=== PATIENT | male | born 1940 | race Caucasian/White ===

== ENCOUNTER 2021-02-26 14:30 | Emergency (ER) | payer MEDICARE ==
[2021-02-26] MEDS ORDERED: Adenosine 6 MG/2 ML SDV IVPUSH ONE (15:16)
[2021-02-26] MEDS ORDERED: Propofol 200 MG/20 ML SDV IVPUSH ONE (15:41)
--- NOTE | 2021-02-26 15:53 | EDM.PDOC ---
ED HPI GENERAL MEDICAL PROBLEM - General Chief Complaint: Cardiovascular Problem Stated Complaint: HEART RATE/BLOOD PRESSURE Time Seen by Provider: 02/26/21 15:30 Source of Information: Reports: Patient, Family, Provider History Limitations: Reports: No Limitations - History of Present Illness INITIAL COMMENTS - FREE TEXT/NARRATIVE: 80-year-old male who is undergoing treatment for multiple myeloma who went into the clinic today for routine follow-up. He was found to be tachycardic, placed on a monitor and appeared that he was in atrial flutter with a rate of 130. He has had a history of this but he has felt well recently so it was suspected that this recently started. He is anticoagulated with Eliquis. He feels a little bit lightheaded with minimal shortness of breath so he was sent over to the emergency room. This was done after some fluids were given and he was monitored. Onset: Unknown/Unsure Associated Symptoms: Reports: Malaise, Weakness, Other (Mild dizziness, lightheaded) - Related Data Allergies Allergy/AdvReac Type Severity Reaction Status Date / Time No Known Allergies Allergy Verified 02/26/21 15:06 Home Meds: Home Meds Apixaban [Eliquis] 5 mg PO BID 09/17/20 [History] Metoprolol Succinate [Toprol XL] 50 mg PO DAILY 09/17/20 [History] Multivitamin [Multi-Vitamin Daily] 1 each PO DAILY 09/27/20 [History] lisinopriL [Lisinopril] 2.5 mg PO DAILY 09/27/20 [History] Acyclovir 200 mg PO BID 02/26/21 [History] Fluconazole [Diflucan] 100 mg PO DAILY 02/26/21 [History] Furosemide [Lasix] 40 mg PO DAILY 02/26/21 [History] Omeprazole 20 mg PO DAILY 02/26/21 [History] dexAMETHasone [Dexamethasone] 10 cap PO ASDIRECTED 02/26/21 [History] Past Medical History HEENT History: Reports: Hard of Hearing Cardiovascular History: Reports: Afib, Hypertension, Other (See Below) Other Cardiovascular History: cardiomyopathy Respiratory History: Reports: None Genitourinary History: Reports: Prostate Disorder Other Genitourinary History: ckd Musculoskeletal History: Reports: Back Pain, Chronic Oncologic (Cancer) History: Reports: Prostate, Other (See Below) Other Oncologic History: multiple myeloma - Infectious Disease History Infectious Disease History: Reports: Chicken Pox - Past Surgical History HEENT Surgical History: Reports: Tonsillectomy GI Surgical History: Reports: Colonoscopy Male Surgical History: Reports: Prostate Biopsy Neurological Surgical History: Reports: Discectomy Oncologic Surgical History: Reports: Bone Marrow Aspiration Social & Family History - Tobacco Use Tobacco Use Status *Q: Former Tobacco User Used Tobacco, but Quit: Yes Month/Year Tobacco Last Used: 1962 ED ROS GENERAL - Review of Systems Review Of Systems: See Below Constitutional: Reports: Malaise. Denies: Fever, Chills Respiratory: Denies: Shortness of Breath Cardiovascular: Reports: Chest Pain (Mild pressure sensation) GI/Abdominal: Denies: Nausea, Vomiting Skin: Reports: Bruising (Bruises easily) Neurological: Reports: Dizziness, Weakness ED EXAM, GENERAL - Physical Exam Exam: See Below Exam Limited By: No Limitations General Appearance: Alert, No Apparent Distress Eye Exam: Bilateral Eye: EOMI, Other (Conjunctiva are somewhat pale) Head: Atraumatic Respiratory/Chest: No Respiratory Distress, Lungs Clear. No: Respiratory Distress Cardiovascular: Regular Rate, Rhythm, Tachycardia GI/Abdominal: Soft, Non-Tender #1 Interpretation Rhythm: A-Flutter Rate (Beats/Min): 130 EKG Interpretation Comments: 2-1 atrial flutter Course - Vital Signs Last Recorded V/S: Last Vital Signs Temp 96.4 F L 02/26/21 15:03 Pulse 80 02/26/21 17:00 Resp 12 02/26/21 17:00 BP 83/49 L 02/26/21 17:00 Pulse Ox 95 02/26/21 16:18 - Orders/Labs/Meds Orders: Active Orders 24 hr Category Date Time Status EKG 12 Lead [EK] Routine Ther 02/26/21 16:18 Ordered EKG 12 Lead [EK] Routine Ther 02/26/21 16:18 Ordered Meds: Medications Discontinued Medications Generic Name Dose Route Start Last Admin Trade Name Jacobyq PRN Reason Stop Dose Admin Adenosine 6 mg 02/26/21 15:16 02/26/21 15:37 Adenosine 6 Mg/2 Ml Sdv IVPUSH 02/26/21 15:17 6 mg NOW ONE Administration Propofol 200 mg 02/26/21 15:41 Propofol 200 Mg/20 Ml Sdv IVPUSH 02/26/21 15:42 ONETIME ONE - Re-Assessments/Exams Free Text/Narrative Re-Assessment/Exam: 02/26/21 16:35 Patient appears to have 2-1 atrial flutter, adenosine was given 6 mg which bloc ked the QRS complexes and exposed a very clear pattern of atrial flutter. Consent was then made for elective cardioversion, with the assistance of the hospitalist service, Dr. Mcmillan, patient was given 80 mg of IV propofol, attained excellent sedation, and 1 synchronized shock was given by Dr. Mcmillan. This converted the patient to sinus rhythm. He recovered nicely with a total anesthesia time of 18 minutes. Departure - Departure Time of Disposition: 17:30 Disposition: Home, Self-Care 01 Clinical Impression: Atrial flutter with rapid ventricular response Instructions: Atrial Flutter Referrals: Leticia Hernandez MD [Primary Care Provider] - Forms: ED Department Discharge Care Plan Goals: Continue your current medications, increase activity and diet as tolerated and follow-up as scheduled for any further physician visits. Return anytime if symptoms recur or you develop other concerns. Sepsis Event Note (ED) - Evaluation Sepsis Screening Result: No Definite Risk - Focused Exam Vital Signs: Vital Signs Temp Pulse Resp BP Pulse Ox 02/26/21 17:00 80 12 83/49 L 02/26/21 16:18 64 12 79/45 L 95 02/26/21 15:36 128 H 20 132/69 97 02/26/21 15:03 96.4 F L 142 H 26 H 121/70 98 - My Orders Last 24 Hours: My Active Orders 02/26/21 16:18 EKG 12 Lead [EK] Routine EKG 12 Lead [EK] Routine - Assessment/Plan Last 24 Hours: My Active Orders 02/26/21 16:18 EKG 12 Lead [EK] Routine EKG 12 Lead [EK] Routine
--- NOTE | 2021-02-26 18:06 | PCM.PRNOTE ---
- Free Text/Narrative Note: Date of service: 02/26/2021 Proposed procedure: Synchronized cardioversion Preprocedure diagnosis: Paroxysmal atrial flutter with rapid ventricular response Post procedure diagnosis: Paroxysmal atrial flutter with rapid ventricular response Indication for procedure: Dylon was evaluated today for management atrial flutter with symptoms and rapid ventricular response. Synchronized cardioversion was recommended as a primary treatment. Description of the procedure: Dylon is currently located [facility]. We have rev iewed the potential risks of electrical cardioversion including but not limited to: Superficial skin rizvi, ineffective treatment, other arrhythmias, reaction to anesthesia medications or potentially asystole. The benefits of the procedure have also been reviewed. At this time the patient wishes to proceed with electrical cardioversion. All necessary pre-procedure information and paperwork has been provided and completed, respectively. The patient was connected to cardioversion pads and monitoring equipment per protocol. Prior to the procedure, a timeout was held with nursing and anesthesia present to confirm the right patient and right procedure. Once appropriate anesthesia was applied the machine was charged to 100 Joules and a synchronized electrical shock was applied. The patient was successfully converted to normal sinus rhythm based on telemetry monitoring. They will remain in their current location until anesthesia has dissipated and the patient is more awake and alert. They will then be discharged to home once medically stable. Anticoagulation should be continued for at least one month post cardioversion. There were no immediate complications noted from the procedure. Post procedure EKG is pending at the time of dictation. Edmond Mcmillan M.D.
== END 2021-02-26 17:30 | disposition home or self-care (01) ==
LOC: JP.ED 14:30
DX: I48.92 Unspecified atrial flutter (principal); I48.91 Unspecified atrial fibrillation; I10 Essential (primary) hypertension; I44.7 Left bundle-branch block, unspecified; Z87.891 Personal history of nicotine dependence; Z79.01 Long term (current) use of anticoagulants; Z79.899 Other long term (current) drug therapy
CPT/HCPCS: 92960; 93005; 96374; 99152; 99284; J0153; J2704